=== PATIENT | female | born 1970 | race Caucasian/White ===

== ENCOUNTER 2020-11-23 18:11 | Emergency (ER) | payer OTHER ==
[~2020-11-23] VITALS: Ht 165.1 cm; Wt 54.4 kg
[2020-11-23 18:21] VITALS: Ht 165.1 cm; Wt 54.4 kg
[2020-11-23 19:26] LABS: BASOPHIL % 0.5 % (0.2-1.3); PLATELET COUNT 193 x10^3mcL (179-408); RED CELL DISTRIBUTION WIDTH 12.5 % (12.3-17.7)
[2020-11-23 19:34] LABS: CALCIUM 9.3 mg/dL (8.5-10.1); CARBON DIOXIDE 30.8 mmol/L (21-32); CHLORIDE SERUM 107 mmol/L (98-107); GFR1 > 60 mL/min; GLUCOSE SERUM 123 mg/dL (74-106); POTASSIUM SERUM 3.7 mmol/L (3.5-5.1); SODIUM SERUM 144 mmol/L (136-145)
[2020-11-23 19:40] LABS: ALBUMIN 3.4 g/dL (3.4-5.0); ALKALINE PHOSPHATASE 133 U/L (46-116); ALT/SGPT 39 U/L (14-59); AST/SGOT 25 U/L (15-37); BILIRUBIN TOTAL 0.3 mg/dL (0.20-1.00); LIPASE 99 IU/L (73-393); TOTAL PROTEIN, SERUM 7.1 g/dL (6.4-8.2)
[2020-11-23] MEDS ORDERED: ACID REDUCER20 MG PO (22:27)
[2020-11-23 22:40] VITALS: BP 112/61
== END 2020-11-23 22:48 | disposition home or self-care (01) ==
LOC: ED 18:11
PROVIDERS: Student in an Organized Health Care Education/Training Program
DX: K29.70 Gastritis, unspecified, without bleeding (principal)